=== PATIENT | female | born 1995 | race Hispanic/Latino ===

== ENCOUNTER 2018-12-31 21:12 | Emergency (ER) | payer MEDICAID ==
[2018-12-31 21:30] LABS: APPEARANCE,URINE SL CLOUDY (CLEAR); BILIRUBIN,URINE NEGATIVE (NEGATIVE); COLOR,URINE YELLOW (YELLOW); GLUCOSE, URINE (UA) NEGATIVE (NEGATIVE); KETONES,URINE NEGATIVE (NEGATIVE); LEUKOCYTE ESTERASE ,URINE SMALL (NEGATIVE); NITRATE,URINE NEGATIVE (NEGATIVE); OCCULT BLOOD,URINE TRACE-INTACT (NEGATIVE); PROTEIN,URINE NEGATIVE (NEGATIVE)
[2018-12-31 21:41] LABS: BASOPHILS % (AUTO) 0.3 % (0.0-5.0); EOSINOPHILS % (AUTO) 0.8 % (0.0-8.0); HEMATOCRIT 38.8 % (36-48); MEAN CORPUSCULAR HEMOGLOBIN 30.2 pg (27.0-33.0); MEAN CORPUSCULAR HGB CONC 34.1 g/dL (32.0-36.0); MEAN CORPUSCULAR VOLUME 88.6 fL (80-100); MONOCYTES % (AUTO) 6.1 % (3.0-13.0); NEUTROPHILS % (AUTO) 76.8 % (40.0-77.0); PLATELET COUNT (AUTO) 280 K/uL (130-400); RED BLOOD CELL COUNT(AUTO) 4.38 MIL/uL (4.00-5.50); RED CELL DISTRIBUTION WIDTH 14.1 % (11.0-15.5); WHITE BLOOD COUNT (AUTO) 9.7 K/uL (4.8-10.8)
[2018-12-31 21:50] LABS: CREATININE 0.6 mg/dL (0.5-1.5)
[2018-12-31 21:53] LABS: MUCUS,URINE Rare LPF (None Seen)
[2018-12-31 21:54] LABS: BACTERIA,URINE Few /HPF (None Seen)
[2018-12-31 22:00] LABS: RBC,URINE 0-1 /HPF (0-1)
[2018-12-31 22:16] LABS: ALBUMIN 3.5 g/dL (3.5-5.0); BILIRUBIN,TOTAL 0.4 mg/dL (0.2-1.0); TOTAL PROTEIN, SERUM 7.6 g/dL (6.0-8.3)
== END 2018-12-31 22:37 | disposition home or self-care (01) ==
LOC: EDH 21:12
DX: O26.891 Other specified pregnancy related conditions, first trimester (principal); T36.3X5A Adverse effect of macrolides, initial encounter; R10.84 Generalized abdominal pain; Z3A.09 9 weeks gestation of pregnancy; Y92.89 Other specified places as the place of occurrence of the external cause
CPT/HCPCS: 36415; 80053; 81001; 84702; 85025

== ENCOUNTER 2019-12-25 19:02 | Emergency (ER) | payer MEDICAID ==
[2019-12-25 19:37] LABS: BASOPHILS % (AUTO) 0.3 % (0.0-5.0); EOSINOPHILS % (AUTO) 0.9 % (0.0-8.0); HEMATOCRIT 34.8 % (36-48); LYMPHOCYTES % (AUTO) 25.4 % (21.0-51.0); MEAN CORPUSCULAR VOLUME 84.7 fL (79-99); MONOCYTES % (AUTO) 6.5 % (3.0-13.0); NEUTROPHILS % (AUTO) 66.6 % (40.0-77.0); PLATELET COUNT (AUTO) 284 K/uL (130-400); RED BLOOD CELL COUNT(AUTO) 4.11 MIL/uL (4.00-5.50); RED CELL DISTRIBUTION WIDTH 14.2 % (11.0-15.5); WHITE BLOOD COUNT (AUTO) 9.1 K/uL (4.8-10.8)
== END 2019-12-25 19:58 | disposition home or self-care (01) ==
LOC: EDH 19:02
DX: O20.0 Threatened abortion (principal); Z3A.13 13 weeks gestation of pregnancy
CPT/HCPCS: 36415; 85025; 86900; 86901

== ENCOUNTER 2023-12-13 20:08 | Emergency (ER) | payer MEDICAID ==
[2023-12-13] MEDS: ACETAMINOPHEN 500 MG TABLET PO ONE (21:22)
[2023-12-13 21:42] LABS: RAPID GROUP A STREP negative (NEGATIVE)
[2023-12-13 21:52] LABS: COVID19 (SARS ANTIGEN RAPID) PRESUMPTIVE NEGATIVE (NEGATIVE); INFLUENZA TYPE B Negative For Type B (NEGATIVE)
[2023-12-13 22:10] LABS: INFLUENZA TYPE A Positive For Type A (NEGATIVE)
[2023-12-13] MEDS ORDERED: BENZ-39 PO (22:20)
[2023-12-13] MEDS ORDERED: OSEL75 PO (22:20)
[2023-12-13 22:21] VITALS: BP 124/74; PULSE 94; RESP 17; O2SAT 97
== END 2023-12-13 22:30 | disposition home or self-care (01) ==
LOC: EDH 20:08
DX: J10.1 Influenza due to other identified influenza virus with other respiratory manifestations (principal); R05.9 Cough, unspecified; R50.9 Fever, unspecified; Z20.822 Contact with and (suspected) exposure to COVID-19
CPT/HCPCS: 87426; 87804; 87880

== ENCOUNTER 2024-11-10 14:03 | Emergency (ER) | payer MEDICAID ==
[~2024-11-10] VITALS: Ht 167.6 cm; Wt 104.3 kg
[~2024-11-10 14:03] MED LIST: BENZ-39 PO; OSEL75 PO
--- NOTE | 2024-11-10 14:16 | ERN ---
General Stated Complaint: LACERATION ON RT THUMB Time Seen by MD: 14:03 Source: patient History of Present Illness Initial Comments 79-year-old female coming in to be evaluated for right hand 5th digit laceration. She states he was cutting onions with a sharp object and cut the distal part of the digit. No other current complaints. Allergies: Coded Allergies: No Known Drug Allergies (Unverified Allergy, Unknown, 12/25/19) Home Meds Active Scripts Benzonatate (Tessalon Perles) 100 Mg Cap, 100 MG PO TID for cough, #30 CAP 0 Refills Prov:MARQUITA MOREAU PERSONNEL OFFICER 12/13/23 Oseltamivir Phosphate (Tamiflu) 75 Mg Cap, 75 MG PO BID for 5 Days, #10 CAP Prov:MARQUITA MOREAU PERSONNEL OFFICER 12/13/23 Past Medical History Past Medical History: No Pertinent History Past Surgical History: None Female( History) History: Not Applicable Results Laboratory and Microbiology Labs Reviewed?: Yes MDM MDM: DIFFERENTIAL DIAGNOSIS: THUMB LACERATION, LACERATION PATIENT IS A 29-YEAR-OLD FEMALE COMING IN TO BE EVALUATED FOR RIGHT THUMB LACERATION. PATIENT STATES SHE WAS GRADING SOME ONIONS AND CERTAINLY HERSELF WITH THE GREATER. MULTIPLE SMALL LACERATIONS 1 CM X3. PATIENT RECEIVED A DIG ITAL BLOCK WITH LIDOCAINE 1% 5 ML GOOD ANESTHESIA ACHIEVED USING FIVE 0 ETHILON X7 SIMPLE INTERRUPTED SUTURES WOUNDS WERE APPROXIMATED. PATIENT TOLERATED PROCEDURE WELL. PATIENT WILL BE DISCHARGED WITH ORAL ANTIBIOTICS I ADVISED HER APPROPRIATE FOLLOW UP WITH PCP IN 1-2 DAYS. ED Course Orders Procedure Category Date Status Time Tetanus,Diphtheria PHA 11/10/24 Complete Tox [Adult] (Diphther 14:30 Current Medications Medications (Trade) Dose Ordered Sig/Callie Route PRN Reason Start Time Stop Time Status Last Admin Dose Admin Tetanus/ Diphtheria Toxoids Adsorbed (DiphthERIA-teTANUS TOXOID [ADULT]/ DECAVAC) 0.5 ml ONCE ONCE IM 11/10/24 14:30 11/10/24 14:31 DC 11/10/24 15:43 Vital Signs Date Time Temp Pulse Resp B/P (MAP) Pulse Ox O2 Delivery O2 Flow Rate FiO2 11/10/24 15:45 97.0 84 20 121/58 98 Room Air 0 11/10/24 15:45 98.8 74 20 121/65 98 Room Air* 0 21 Laceration/Wound Repair Laceration/Wound Repair : Wound Location: upper extremity Wound Length (cm): 4 Wound's Depth, Shape: superficial Irrigated w/ Saline (ccs): 100 Anesthesia: 1% Lidocaine Volume Anesthetic (ccs): 5 Wound Repaired With: sutures Suture Size/Type: 5:0 Number of Sutures: 7 Layer Closure?: Yes Sterile Dressing Applied?: Yes DX & DISP Disposition: Discharge Departure Impression: Primary Impression: Thumb laceration Condition: Stable Scripts Cephalexin Monohydrate (Keflex) 500 Mg Cap 1 CAP PO TID for 10 Days, #30 CAP 0 Refills Prov: RICKY DANIEL MD 11/10/24 Additional Instructions: FOLLOW-UP WITH PRIMARY CARE PROVIDER IN 1 TO 2 DAYS. TAKE MEDICATIONS DIRECTED HERE IN THE EMERGENCY ROOM. OKAY TO CONTINUE HOME MEDICATIONS UNLESS OTHERWISE DISCUSSED DURING YOUR VISIT IN THE EMERGENCY ROOM TODAY. RETURN TO YOUR NEAREST EMERGENCY ROOM IF SYMPTOMS WORSEN OR IF THERE IS NO IMPROVEMENT. CALL 911 IF YOU NEED IMMEDIATE ASSISTANCE. TAKE TYLENOL [id number] NEEDED AND IF NO CONTRAINDICATIONS ARE PRESENT. INCREASE ORAL HYDRATION. A WOUND CULTURE OR URINE CULTURE WAS ORDERED HERE IN THE EMERGENCY ROOM DEPARTMENT PLEASE FOLLOW-UP WITH PRIMARY CARE PROVIDER AND ADVISE THEM TO GET REPEAT PORTS FROM OUR FACILITY. IF YOU HAD ANY DAVINA WRAP/SPLINTS THAT WERE APPLIED HERE, PLEASE DO NOT REMOVE THEM UNTIL YOU SEE YOUR PRIMARY CARE OR SPECIALTY. REFERRALS: Referrals: SELF,REFERRAL (PCP) SUMEET RICO MD Time of Disposition: 16:13 RICKY DANIEL MD Nov 10, 2024 14:16
[2024-11-10] MEDS: teTANUS/diphthERIA TOXOID [ADULT] 0.5 ML VIAL IM ONE (15:43)
[2024-11-10 15:45] VITALS: TEMP 97
[2024-11-10] MEDS ORDERED: CEPH500B PO (16:13)
[2024-11-10] MEDS: NEOMY SULF/BACITRA/POLYMYXIN B 1 EACH PACKET TP ONE (16:20)
[2024-11-10 16:22] VITALS: BP 127/69; PULSE 72; RESP 18; O2SAT 97
== END 2024-11-10 16:34 | disposition home or self-care (01) ==
LOC: EDH 14:03
DX: S61.011A Laceration without foreign body of right thumb without damage to nail, initial encounter (principal); Z79.899 Other long term (current) drug therapy; W26.8XXA Contact with other sharp object(s), not elsewhere classified, initial encounter; Y93.89 Activity, other specified; Y92.89 Other specified places as the place of occurrence of the external cause; Y99.8 Other external cause status
CPT/HCPCS: 12002; 90471; 90714; 99283